=== PATIENT | male | born 1935 | race Two or more races ===

== ENCOUNTER 2017-06-18 20:28 | Emergency (ER) | payer MEDICARE, BC ==
[~2017-06-18] VITALS: Ht 170.2 cm; Wt 81.6 kg
--- NOTE | 2017-06-18 20:30 | NUR ---
PT A/OX4 BREATHING EFFORTLESSLY ON ROOM AIR, PT STATES HE HAS BEEN CONSTIPATED X 2 DAYS AND STATES HE HAS TAKEN MIRALAX AND DOCULAX TODAY AND IS STILL CONSTIPATED, PT ON MONITOR, IN GOWMD Isela MADE AWARE, PT AT BEDSIDE, WILL CONTINUE TO MONITOR.
[2017-06-18] MEDS ORDERED: LACTULOSE 10 G/15 ML UDC (PYXIS) ONE (20:45)
[2017-06-18] MEDS ORDERED: ALLO100T PO (20:47)
[2017-06-18] MEDS ORDERED: ASPI81TA2 PO (20:47)
[2017-06-18] MEDS ORDERED: DUTA0.5C PO (20:47)
[2017-06-18] MEDS ORDERED: ATOR10TA PO (20:47)
[2017-06-18] MEDS ORDERED: BISACODYL SUPP (10 MG) 10 MG/SUPP.RECT SUPP.RECT RC ONE (21:00)
[2017-06-18] MEDS ORDERED: NA PHOS,M-B/NA PHOS,DI-BA 1 EA ENEMA RC ONE ×2 (21:00→21:21)
[2017-06-18] MEDS ORDERED: LACTULOSE 10 G/15 ML UDC (PYXIS) PO ONE (21:00)
--- NOTE | 2017-06-18 21:38 | NUR ---
ENEMA GIVEN AND PT WAS ABLE TO HAVE A BOWEL MOVEMENT, PT STATES HE FEELS BETTER, MD MADE AWARE WILL CONTINUE TO MONITOR.
[2017-06-18 22:05] VITALS: BP 136/82
== END 2017-06-18 22:05 | disposition home or self-care (01) ==
LOC: ER 20:30
DX: K59.00 Constipation, unspecified (principal); Z79.82 Long term (current) use of aspirin; Z88.5 Allergy status to narcotic agent
CPT/HCPCS: A4606; Z7610